=== PATIENT | female | born 1990 | race Caucasian/White ===

== ENCOUNTER 2021-12-19 07:46 | Emergency (ER) | payer OTHER ==
[~2021-12-19] VITALS: Ht 157.5 cm; Wt 120.0 kg
[2021-12-19] MEDS ORDERED: HYDR12.58 PO (09:50)
--- NOTE | 2021-12-19 09:52 | PHYS DOC ---
Past Medical History Past Surgical History: No Surgical History Smoking Status: Never Smoker Alcohol Use: None General Adult EDM: Chief Complaint: HYPERTENSION HPI: HPI: Patient is a 31 year old female with history of obesity who presents with concerns of high blood pressure. Patient had a headache yesterday was better after aspirin. During her headache she checked her blood pressure and it was elevated to ~150/100. The headache was not thunderclap, it gradually increased over approximately 30 minutes. Described as a pressure headache, and was not the worst headache of her life. No neck pain or fever. No accompanying neurologic symptoms such as confusion, slurred speech, numbness/tingling, extremity weakness, or coordination difficulty. Today she is headache free. She checked her blood pressure once again this morning and it was elevated to 160s/90s. Due to these high blood pressure readings she presented to the emergency department. She currently has no symptoms. Denies chest pain, shortness of breath, lower extremity edema. Denies history of HTN, however, does not follow with a primary care doctor. Review of Systems: Review of Systems: Constitutional: Denies fever or chills. [] Eyes: Denies change in visual acuity. [] HENT: Denies nasal congestion or sore throat. [] Respiratory: Denies cough or shortness of breath. [] Cardiovascular: Reports high blood pressure. Denies chest pain or edema. [] GI: Denies abdominal pain, nausea, vomiting, bloody stools or diarrhea. [] : Denies dysuria. [] Musculoskeletal: Denies back pain or joint pain. [] Integument: Denies rash. [] Neurologic: Reports now resolved headache. Denies focal weakness or sensory changes. [] Endocrine: Denies polyuria or polydipsia. [] Lymphatic: Denies swollen glands. [] Psychiatric: Denies depression or anxiety. [] Heart Score: C/O Chest Pain: No Allergies: Allergies: Allergies Coded Allergies Type Severity Reaction Last Updated Verified codeine Allergy Unknown 12/19/21 Yes Physical Exam: PE: Constitutional: Obese, well-appearing, no distress. HENT: Normocephalic, atraumatic Neck: Normal range of motion, no tenderness, supple, no stridor. [] Cardiovascular:Heart rate regular rhythm, no murmur [] Lungs & Thorax: Bilateral breath sounds clear to auscultation [] Abdomen: Bowel sounds normal, soft, no tenderness, no masses, no pulsatile masses. [] Skin: Warm, dry, no erythema, no rash. [] Extremities: Warm, well-perfused, no lower extremity edema. Neurologic: Alert and oriented X 3, normal motor function, normal sensory function, no focal deficits noted. [] Psychologic: Affect normal, judgement normal, mood normal. [] Current Patient Data: Labs: Laboratory Tests Test 12/19/21 08:58 12/19/21 10:02 Sodium Level 139 mmol/L Potassium Level 4.0 mmol/L Chloride Level 103 mmol/L Carbon Dioxide Level 28 mmol/L Anion Gap 8 Blood Urea Nitrogen 16 mg/dL Creatinine 0.8 mg/dL Estimated GFR (Cockcroft-Gault) 84.2 Glucose Level 134 mg/dL Calcium Level 8.6 mg/dL Bedside Urine HCG, Qualitative Hcg negative Vital Signs: Vital Signs Date Time Temp Pulse Resp B/P (MAP) Pulse Ox O2 Delivery O2 Flow Rate FiO2 12/19/21 08:04 98.5 107 16 168/92 (117) 96 Room Air 98.5 EKG: EKG: [] Radiology/Procedures: Radiology/Procedures: [] Course & Med Decision Making: Course & Med Decision Making Pertinent Labs and Imaging studies reviewed. (See chart for details) Patient 31-year-old female who presents with concerns of hypertension. She had a headache yesterday that has since resolved. As reviewed in HPI, headaches have any major concerning features. I am not concerned for hypertensive bleed. Will not pursue neuro imaging. Blood pressure has been elevated in the ED, initially 160s/90s. Came down to 149/80 without intervention. We will check a BMP to ensure no evidence of renal injury. Has been provided with follow-up information to establish with a family practice physician. We will start low-dose hydrochlorothiazide. Dragon Disclaimer: Dragon Disclaimer: This electronic medical record was generated, in whole or in part, using a voice recognition dictation system. Departure Departure Impression: Primary Impression: Hypertension Disposition: HOME / SELF CARE / HOMELESS Condition: STABLE Referrals: NO PCP (PCP) Patient Instructions: Hypertension Additional Instructions: Since you do not have a PCP, please call the number for the [facility] at [phone]. Please keep a journal of your blood pressures. Please take your blood pressure one time daily. Take at the same time of day, while in a seated position. Please rest for at least 5 minutes prior to taking your blood pressure reading. Take this journal to your primary care follow-up appointment once this is established. You can take hydrochlorothiazide 12.5 mg once daily, which is a low-dose blood pressure medication until you can follow-up with primary care. If you have severe sudden onset headaches, chest pain, shortness of breath, significant lower extremity swelling, or other new/concerning symptoms please return to the emergency department for reevaluation. Scripts Hydrochlorothiazide (HYDROCHLOROTHIAZIDE TABLET) 12.5 Mg Tablet 12.5 MG PO DAILY for DIURETIC for 30 Days, #30 TAB 0 Refills Prov: BAKARI VILLARREAL MD 12/19/21 BAKARI VILLARREAL MD Dec 19, 2021 09:52
[2021-12-19 09:53] LABS: CALCIUM 8.6 mg/dL (8.5-10.1); CREATININE 0.8 mg/dL (0.6-1.0); GFR 84.2
[2021-12-19 10:30] VITALS: BP 139/81
== END 2021-12-19 10:30 | disposition home or self-care (01) ==
LOC: ER 07:46
DX: I10 Essential (primary) hypertension (principal); R51.9 Headache, unspecified; Z88.5 Allergy status to narcotic agent
CPT/HCPCS: 36415; 80048; 81025; 99283